=== PATIENT | female | born 1985 | race Asian ===

== ENCOUNTER 2022-03-07 11:26 | Outpatient (CLI) | payer OTHER | END 2022-03-07 11:27 | disposition home or self-care (01) | LOC: CSHLAB 11:26 | PROVIDERS: ATTEND Family Medicine | DX: Z20.822 Contact with and (suspected) exposure to COVID-19 (principal) | CPT/HCPCS: 87811 ==

== ENCOUNTER 2022-03-09 06:09 | Day surgery (SDC) | payer OTHER ==
[2022-03-08 12:19] VITALS: BMI 28.3
[2022-03-09] MEDS ORDERED: Methylergonovine 0.2 MG/ML VIAL ONE (06:54)
[2022-03-09 07:01] LABS: Hemoglobin 11.7 g/dL (12.0-15.5); Mean Corpuscular HGB CONC 33.3 g/dL (32.0-36.0); Mean Corpuscular Hemoglobin 28.5 pg (27.0-33.0); Mean Corpuscular Volume 85.6 fl (81.6-98.3); Mean Platelet Volume 9.2 fl (7.4-10.4); Platelet Count 371 10x3/uL (150-450); RBC Distribution Width 12.6 % (11.5-14.5); White Blood Cell (WBC) Count 7.7 10x3/uL (3.5-10.5)
[2022-03-09] MEDS ORDERED: Lidocaine 1% PF 5 ML VIAL ONE (07:23)
[2022-03-09] MEDS ORDERED: Fentanyl 100 MCG/2 ML VIAL ONE (07:23)
[2022-03-09] MEDS ORDERED: PROPOFOL 20 ML ONE (07:23)
[2022-03-09] MEDS ORDERED: Misoprostol 200 MCG TAB ONE (07:25)
[2022-03-09] MEDS ORDERED: Ondansetron PF 4 MG/2 ML Vial ONE (07:40)
[2022-03-09] MEDS ORDERED: Dexamethasone 20 MG/5 ML VIAL ONE (07:40)
[2022-03-09] MEDS ORDERED: Ketorolac Tromethamine 30 MG/ML VIAL ONE (07:59)
== END 2022-03-09 09:40 | disposition home or self-care (01) ==
LOC: CSHSDC 06:09
PROVIDERS: ATTEND Family Medicine
PROC: 10D17Z9 Manual Extraction of Products of Conception, Retained, Via Natural or Artificial Opening (ICD-10-PCS; principal; 2022-03-09)
DX: O02.1 Missed abortion (principal)
CPT/HCPCS: 36415; 85027; 86850; 86900; 86901; 88305; J1100; J1885; J2210; J2405; J2704; J3010